=== PATIENT | female | born 1970 | race Caucasian/White ===

== ENCOUNTER → 2018-10-28 | Outpatient (CLI) | payer MEDICAID | LOC: FIMAGING 16:09 | PROVIDERS: ATTEND Family Medicine | DX: D25.9 Leiomyoma of uterus, unspecified (principal); Z97.5 Presence of (intrauterine) contraceptive device ==

== ENCOUNTER → 2018-11-18 | Outpatient (CLI) | payer MEDICAID | LOC: FIMAGING 16:03 | PROVIDERS: ATTEND Family Medicine | DX: Z12.31 Encounter for screening mammogram for malignant neoplasm of breast (principal) ==

== ENCOUNTER → 2018-12-10 | Outpatient (CLI) | payer MEDICAID | LOC: BMCIMAGING 10:54 | PROVIDERS: ATTEND Family Medicine | DX: N60.01 Solitary cyst of right breast (principal); N63.11 Unspecified lump in the right breast, upper outer quadrant ==